=== PATIENT | male | born 1955 | race Caucasian/White ===

== ENCOUNTER 2021-05-25 17:09 | Emergency (ER) | payer BC, OTHER ==
[2021-05-25] MEDS ORDERED: fentaNYL (PF) 50 MCG/ML 2 ML AMP IVP STA ×2 (17:22→19:14)
[2021-05-25] MEDS ORDERED: SODIUM CHLORIDE 0.9% 1,000 ML IV ONE (17:24)
[2021-05-25 17:41] LABS: Glucose,Whole Blood 147 mg/dL (75-99)
[2021-05-25 17:44] LABS: Basophils % (A) 0 %; Eosinophils % (A) 0 %; HCT 42.2 % (39.0-53.0); HGB 14.9 gm/dL (13.0-17.5); Lymphocytes # (A) 1.4 k/uL (1.0-4.8); Lymphocytes % (A) 12 %; MCH 31.3 pg (25.0-35.0); MCHC 35.3 g/dL (31.0-37.0); MCV 88.6 fL (80.0-100.0); Mean Platelet Volume 6.9; Monocytes # (A) 0.6 k/uL (0-1.0); Monocytes % (A) 5 %; Neutrophils # (A) 9.4 k/uL (1.3-7.7); Neutrophils % (A) 81 %; Platelet Count 236 k/uL (150-450); RBC 4.76 m/uL (4.30-5.90); RDW 12.9 % (11.5-15.5); WBC 11.6 k/uL (3.8-10.6)
[2021-05-25 17:45] LABS: ALT 22 U/L (4-49); AST 33 U/L (17-59); African American GFR (CKD) >90 (>60 ml/min/1.73 sqM); Albumin 4.1 g/dL (3.5-5.0); Alcohol <10 mg/dL; Alkaline Phosphatase 73 U/L (38-126); Anion Gap 8 mmol/L; Blood Urea Nitrogen 19 mg/dL (9-20); Calcium 9.5 mg/dL (8.4-10.2); Carbon Dioxide 23 mmol/L (22-30); Chloride 108 mmol/L (98-107); Glucose 165 mg/dL (74-99); Non-African American GFR(CKD) >90 (>60 ml/min/1.73 sqM); Potassium 3.9 mmol/L (3.5-5.1); Sodium 139 mmol/L (137-145); Total Bilirubin 0.9 mg/dL (0.2-1.3); Total Protein 6.2 g/dL (6.3-8.2)
[2021-05-25 17:54] LABS: INR 0.9 (<1.2); Partial Thromboplastin Time 21.3 sec (22.0-30.0)
--- NOTE | 2021-05-25 17:56 | XR ---
EXAMINATION TYPE: XR pelvis AP view DATE OF EXAM: 05/25/2021 COMPARISON: None HISTORY: Pain TECHNIQUE: Single view FINDINGS: Pelvic ring is intact. Proximal femurs and hip joints are intact. There is no evidence for fracture. Sacroiliac joints appear normal. IMPRESSION: Normal pelvis.
--- NOTE | 2021-05-25 18:04 | XR ---
EXAMINATION TYPE: XR chest 1V portable DATE OF EXAM: 05/25/2021 COMPARISON: 01/31/2014 HISTORY: Palpitations TECHNIQUE: Single view FINDINGS: Heart is normal. Lungs are clear of infiltrate. There is no heart failure. There are no hil ar masses. There are chest leads. Bony thorax is intact. IMPRESSION: No active cardiopulmonary disease. Normal heart. No change.
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
[2021-05-25] MEDS ORDERED: AMPICILLIN-SULBACTAM 3 GM in SODIUM CHLORIDE 0.9% 100 ML IVPB STA (18:33)
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
--- NOTE | 2021-05-25 19:13 | XR ---
EXAMINATION TYPE: XR elbow limited LT DATE OF EXAM: 05/25/2021 COMPARISON: NONE HISTORY: Trauma. Pain TECHNIQUE: 2 views FINDINGS: There is spurring on the olecranon process. I see no fracture nor dislocation. There is pos terior fat pad suggestive of elbow joint effusion. Radial head is intact. IMPRESSION: Elbow joint effusion. No fracture seen.
--- NOTE | 2021-05-25 19:33 | XR ---
EXAMINATION TYPE: XR wrist limited LT DATE OF EXAM: 05/25/2021 COMPARISON: None HISTORY: Trauma TECHNIQUE: 2 views FINDINGS: There is transverse fracture of the distal radial metaphysis. There is 100% posterior displ acement and some overriding of the fragments. I do not see a definite dislocation at the radiocarpal joint. Carpal bones appear grossly intact. IMPRESSION: Severely displaced fracture distal radial metaphysis.
--- NOTE | 2021-05-25 19:34 | XR ---
EXAMINATION TYPE: XR forearm LT DATE OF EXAM: 05/25/2021 COMPARISON: NONE HISTORY: Pain TECHNIQUE: 2 views FINDINGS: Elbow joint appears intact. There is spurring at the olecranon process of the ulna. There i s transverse fracture distal radial metaphysis with posterior displacement and overriding of fragment s. There is no dislocation at the radiocarpal joint. IMPRESSION: Displaced fracture distal radial metaphysis.
--- NOTE | 2021-05-25 19:35 | XR ---
EXAMINATION TYPE: XR hand limited LT DATE OF EXAM: 05/25/2021 COMPARISON: NONE HISTORY: Pain TECHNIQUE: 2 views FINDINGS: Metacarpals appear intact. Fingers are not well seen due to some flexion. I see no evidence of fracture of the digits. Carpal bones are intact. IMPRESSION: No evidence of fracture of the hand.
[2021-05-25] MEDS ORDERED: MORPHINE SULFATE 4 MG/ML SYRINGE IVP STA (19:36)
--- NOTE | 2021-05-25 19:36 | XR ---
EXAMINATION TYPE: XR knee limited LT DATE OF EXAM: 05/25/2021 COMPARISON: NONE HISTORY: Pain TECHNIQUE: 2 views FINDINGS: There is spurring on the patella. There is small knee joint effusion. There is mild spurrin g at the tibial tubercle. There is spurring of the femoral and tibial condyles. I see no fracture. IMPRESSION: Christoval arthritis with small knee joint effusion. No fracture.
--- NOTE | 2021-05-25 19:47 | XR ---
EXAMINATION TYPE: XR tibia fibula LT DATE OF EXAM: 05/25/2021 COMPARISON: None HISTORY: Trauma TECHNIQUE: 4 views FINDINGS: There is fracture between middle and distal thirds of the tibia. There is comminution. Ther e is 100% lateral displacement distal fragment. There is also comminuted fracture distal shaft of the fibula close to the ankle joint. There is almost 100% posterior displacement distal fragment on the lateral view. IMPRESSION: Comminuted displaced fractures of the distal tibia and fibula as above. Plantar calcaneal spurring noted.
--- NOTE | 2021-05-25 19:49 | XR ---
EXAMINATION TYPE: XR foot limited LT DATE OF EXAM: 05/25/2021 COMPARISON: NONE HISTORY: Trauma. Pain TECHNIQUE: 2 views FINDINGS: There is transverse fracture distal fibula with 100% posterior displacement of the distal f ragment. Fracture is 6 cm from the tip of the fibula. There is plantar calcaneal spurring. Metatarsal s are intact. The toes appear intact. IMPRESSION: Displaced fracture distal fibula. Plantar calcaneal spurring.
--- NOTE | 2021-05-25 19:52 | XR ---
EXAMINATION TYPE: XR ankle limited LT DATE OF EXAM: 05/25/2021 COMPARISON: NONE HISTORY: Trauma TECHNIQUE: 2 views FINDINGS: There are transverse comminuted fractures of the distal tibia between middle and distal thi rds and the distal shaft of the fibula 6 cm from the end of the bone. Ankle mortise is anatomic. Ther e is plantar calcaneal spurring. There is no dislocation at the ankle joint. Ankle joint space is nor mal. IMPRESSION: Displaced fractures of the distal tibia and fibula.
[2021-05-25 20:09] LABS: Appearance,Urine Clear (Clear); Bilirubin,Urine Negative (Negative); Blood,Urine Negative (Negative); Color,Urine Yellow; Glucose,Urine (UA) Negative (Negative); Ketones,Urine 1+ (Negative); Leukocyte Esterase,Urine Negative (Negative); Nitrite,Urine Negative (Negative); Protein,Urine Trace (Negative); Specific Gravity,Urine 1.023 (1.001-1.035); Urobilinogen,Urine <2.0 mg/dL (<2.0)
[2021-05-25 20:24] LABS: Amphetamine Screen,Urine Not Detected (NotDetected); Barbiturate Screen,Urine Not Detected (NotDetected); Benzodiazepines Screen,Urine Not Detected (NotDetected); Cocaine Screen,Urine Not Detected (NotDetected); Methadone Screen, Urine Not Detected (NotDetected); Opiate Screen,Urine Not Detected (NotDetected); Oxycodone Screen, Urine Not Detected (NotDetected); Phencyclidine Screen,Urine Not Detected (NotDetected); Tricyclic Antidepressant,Urine Not Detected (NotDetected); Urn Cannabinoid Scrn Not Detected (NotDetected)
[2021-05-25 22:33] VITALS: BP 130/80; PULSE 82; RESP 20; TEMP 98.6
== END 2021-05-25 20:00 | disposition other institution (70) ==
LOC: EC 17:09
DX: S52.592A Other fractures of lower end of left radius, initial encounter for closed fracture (principal); S52.692A Other fracture of lower end of left ulna, initial encounter for closed fracture; S82.292A Other fracture of shaft of left tibia, initial encounter for closed fracture; S82.832A Other fracture of upper and lower end of left fibula, initial encounter for closed fracture; S02.82XA Fracture of other specified skull and facial bones, left side, initial encounter for closed fracture; S02.40FA Zygomatic fracture, left side, initial encounter for closed fracture; S01.81XA Laceration without foreign body of other part of head, initial encounter; S01.01XA Laceration without foreign body of scalp, initial encounter; Z79.82 Long term (current) use of aspirin; V49.50XA Passenger injured in collision with unspecified motor vehicles in traffic accident, initial encounter; Y92.410 Unspecified street and highway as the place of occurrence of the external cause
CPT/HCPCS: 99285; 96365; 96367; 96375 ×2; 96376; 25605; 27752; 36415; 93005; 86900; 86901; 80053; 85025; 85610; 85730; 86850; 81003; 80306; 80320; 72170; 73070; 73090; 73100; 73120; 73590; 73560; 73600; 73620; 71045; 72125; 70486; 70450; J2270; J0690; J3010; J0295